=== PATIENT | female | born 1980 | race African-American/Black ===

== ENCOUNTER 2017-12-10 18:04 | Emergency (ER) | payer SELFPAY ==
[2017-12-10 19:35] LABS: URINE HCG POC HCG NEGATIVE (Negative)
== END 2017-12-10 21:55 | disposition home or self-care (01) ==
LOC: ER 18:04
DX: M71.22 Synovial cyst of popliteal space [Baker], left knee (principal); J45.909 Unspecified asthma, uncomplicated; F17.200 Nicotine dependence, unspecified, uncomplicated; Z91.040 Latex allergy status
CPT/HCPCS: 29505; 73564; 81025; 93971; 99284-25

== ENCOUNTER 2018-09-24 08:52 | Emergency (ER) | payer MEDICAID ==
[~2018-09-24] VITALS: Ht 175.3 cm; Wt 101.6 kg
[~2018-09-24 08:52] MED LIST: IBUP-1060 PO
--- NOTE | 2018-09-24 09:27 | EKG ---
[facility] [address] [place] [address] Test Date: 2018-09-24 Test Time: 09:15:50 Pat Name: GAVIN BOLAÑOS Department: Room: Gender: F [employer]: : 1980 Requested By: KAYLAN BOLANOS Order Number: [id number] Reading MD: Measurements Intervals Silvis Rate: 60 P: 54 UT: 154 QRS: 49 QRSD: 92 T: 44 QT: 394 QTc: 398 Interpretive Statements SINUS RHYTHM NO SPECIFIC ECG ABNORMALITIES RI6.01 No previous ECG available for comparison
--- NOTE | 2018-09-24 09:29 | RAD ---
CHEST AP ONLY Clinical Indication: STERNAL PAIN X1 DAY, HX OF ASTHMA Comparison: None. Findings: The cardiomediastinal silhouette is normal. Lungs are clear. There is no pneumothorax. No pleural effusion is appreciated. No acute bone abnormality. IMPRESSION: No acute cardiopulmonary process. Electronically signed by: Tommie Rivera MD (09/24/2018 9:24 AM) [id number]
--- NOTE | 2018-09-24 09:47 | PHYS DOC ---
Past Medical History Past Medical History: No Pertinent History, Asthma Past Surgical History: Additional Information: / PPD. Alcohol Use: Rarely Drug Use: None Adult General Chief Complaint Chief Complaint: CHEST PAIN HPI HPI 38-year-old female presenting the emergency department today with chest pain for the past 48 hours. It is worse when she moves around and takes deep breaths in. It is sharp shooting aching pain that is nonradiating intermittent and without alleviating factors. She denies abdominal pain nausea vomiting diaphoresis. She denies a history of hyperlipidemia hypertension. She denies history of diabetes.The patient denies unilateral leg swelling hemoptysis family or personal history of blood clotting disorders. The pt denies recent immobilization or surgery. Medical history: Asthma and migraines Surgical history: 3 C-sections and tubal ligation Social history smokes, denies drinking or IV drug use. She denies being . Review of systems is negative for abdominal pain nausea vomiting diaphoresis headache neck stiffness back pain and vaginal bleeding. All other review of systems is negative unless otherwise noted in history of present illness. ED course: 38 yo female presenting to the emergency department today with chest pain. Blood pressure mildly elevated. Otherwise satting well on room air with normal temperature. EKG obtained and reviewed by myself shows sinus rhythm with a regular rate. ST segments congruent. Not suggestive of ACS. Rest x-ray and blood work obtained. Workup here is unremarkable including a negative troponin. The patient's pain is been present for greater than 6 hours thus one troponin is sufficient. heart score calculated to be 1. We will refer her to cardiology within the next 24-48 hours and her PCP within the next 24-48 hours. She also complains of a small cyst anterior to her ear. Does not appear to be an abscess. We'll refer her to her PCP for this. No associated cellulitis. The patient has been examined and was not found to have an emergency medical condition. The patient was then discharged home in stable condition to follow up with their primary care physician over the next 1-2 days. They were to return if their symptoms worsened or if they were concerned for any reason. They were also instructed to return to the emergency department if they were unable to get the recommended and appropriate follow-up. [id number] discharge instructions and return precautions were given. Patient's questions were answered to their satisfaction. Patient is comfortable with plan. HEART SCORE History Slightly suspicious 0 Moderately suspicious +1 Highly suspicious +2 EKG 1 point: No ST depression but LBBB, LVH, repolarization changes (ex: digoxin); 2 points: ST depression/elevation not due to LBBB, LVH, or digoxin Normal 0 Non-specific repolarization disturbance +[address] depression +2 Age <45 0 45-65 +1 65 +2 Risk factors Risk factors: HTN, hypercholesterolemia, DM, obesity (BMI >30 kg/m), smoking (current, or smoking cessation 3 mo), positive family history (parent or sibling with CVD before age 65); atherosclerotic disease: prior PA, PCI/CABG, CVA/TIA, or peripheral arterial disease No known risk factors 0 1-2 risk factors +1 3 risk factors or history of atherosclerotic disease +2 Initial troponin Use local assays and corresponding cutoffs normal limit 0 1-2 normal limit +1 >2 normal limit +2 Total 1 point Review of Systems Review of Systems SEE ABOVE. Allergies Allergies Allergies Coded Allergies Type Severity Reaction Last Updated Verified Latex, Natural Rubber Allergy Intermediate "i swell up" 12/10/17 Yes Physical Exam Physical Exam SEE ABOVE Constitutional: Well developed, well nourished, no acute distress, non-toxic appearance. [] HENT: Normocephalic, atraumatic, bilateral external ears normal, oropharynx moist, no oral exudates, nose normal. [] Eyes: PERRLA, EOMI, conjunctiva normal, no discharge. [] Neck: Normal range of motion, no tenderness, supple, no stridor. [] Cardiovascular:Heart rate regular rhythm, no murmur [] Lungs & Thorax: Bilateral breath sounds clear to auscultation [] Abdomen: Bowel sounds normal, soft, no tenderness, no masses, no pulsatile masses. [] Skin: Warm, dry, no erythema, no rash. [] Back: No tenderness, no CVA tenderness. [] Extremities: No tenderness, no cyanosis, no clubbing, ROM intact, no edema. no swelling of the legs. Neurologic: Alert and oriented X 3, normal motor function, normal sensory function, no focal deficits noted. [] Psychologic: Affect normal, judgement normal, mood normal. [] Current Patient Data Vital Signs Vital Signs Date Time Temp Pulse Resp B/P (MAP) Pulse Ox O2 Delivery O2 Flow Rate FiO2 09/24/18 09:00 98.0 83 18 166/102 (123) 100 Room Air 98.0 Lab Values Laboratory Tests Test 09/24/18 09:30 White Blood Count 4.0 x10^3/uL (4.0-11.0) Red Blood Count 4.60 x10^6/uL (3.50-5.40) Hemoglobin 12.6 g/dL (12.0-15.5) Hematocrit 38.5 % (36.0-47.0) Mean Corpuscular Volume 84 fL (79-100) Mean Corpuscular Hemoglobin 27 pg (25-35) Mean Corpuscular Hemoglobin Concent 33 g/dL (31-37) Red Cell Distribution Width 14.3 % (11.5-14.5) Platelet Count 256 x10^3/uL (140-400) Neutrophils (%) (Auto) 49 % (31-73) Lymphocytes (%) (Auto) 37 % (24-48) Monocytes (%) (Auto) 7 % (0-9) Eosinophils (%) (Auto) 5 % (0-3) H Basophils (%) (Auto) 1 % (0-3) Neutrophils # (Auto) 2.0 x10^3uL (1.8-7.7) Lymphocytes # (Auto) 1.5 x10^3/uL (1.0-4.8) Monocytes # (Auto) 0.3 x10^3/uL (0.0-1.1) Eosinophils # (Auto) 0.2 x10^3/uL (0.0-0.7) Basophils # (Auto) 0.0 x10^3/uL (0.0-0.2) D-Dimer (Celeste) 0.27 ug/mlFEU (0.00-0.50) Sodium Level 140 mmol/L (136-145) Potassium Level 4.1 mmol/L (3.5-5.1) Chloride Level 103 mmol/L (98-107) Carbon Dioxide Level 28 mmol/L (21-32) Anion Gap 9 (6-14) Blood Urea Nitrogen 14 mg/dL (7-20) Creatinine 0.9 mg/dL (0.6-1.0) Estimated GFR (Cockcroft-Gault) 85.7 Glucose Level 99 mg/dL (70-99) Calcium Level 9.3 mg/dL (8.5-10.1) Total Bilirubin 0.1 mg/dL (0.2-1.0) L Direct Bilirubin 0.1 mg/dL (0.0-0.2) Aspartate Amino Transferase (AST) 14 U/L (15-37) L Alanine Aminotransferase (ALT) 20 U/L (14-59) Alkaline Phosphatase 52 U/L (46-116) Troponin I Quantitative < 0.017 ng/mL (0.000-0.055) Total Protein 7.7 g/dL (6.4-8.2) Albumin 4.0 g/dL (3.4-5.0) Lipase 117 U/L (73-393) Serum Test, Qualitative Negative (NEG) Laboratory Tests 09/24/18 09:30 Laboratory Tests 09/24/18 09:30 EKG EKG [] Radiology/Procedures Radiology/Procedures [] Course & Med Decision Making Course & Med Decision Making Pertinent Labs and Imaging studies reviewed. (See chart for details) [] Dragon Disclaimer Dragon Disclaimer This electronic medical record was generated, in whole or in part, using a voice recognition dictation system. Departure Departure Impression: Primary Impression: Chest pain Disposition: 01 HOME, SELF-CARE Condition: STABLE Referrals: NO PCP (PCP) Patient Instructions: Chest Pain (Nonspecific) Additional Instructions: Thank you for allowing us to participate in your care today. Return to the emergency department you have any new or worsening symptoms, or if you are concerned for any reason. Return to emergency department if you have any new or concerning symptoms including but not limited to fever, chills, nausea, vomiting, intractable pain, any new rashes, chest pain, shortness of air , uncontrolled bleeding, difficulty breathing, and/or vision loss. Follow up with your primary care physician within 1-2 days. Follow up with cardiology in 1-2 days. Call your Primary Doctor tomorrow and inform them of your visit today. If you do not have a primary care provider we are happy to provide you with a list of our primary care providers contact information. This condition should be evaluated by your primary care physician and any recommended consulting services for continued management within 2 days after discharge. If at any time, you are having difficulty getting into your primary care doctor or a specialist, return to the emergency department. Scripts Aspirin (ASPIRIN) 81 Mg Tab.chew 1 TAB PO DAILY, #7 TAB 0 Refills Prov: KAYLAN BOLANOS MD 09/24/18 KAYLAN BOLANOS MD Sep 24, 2018 09:47
[2018-09-24 09:48] LABS: BASO % 1 % (0-3); EOS # 0.2 x10^3/uL (0.0-0.7); EOS % 5 % (0-3); HEMATOCRIT 38.5 % (36.0-47.0); HEMOGLOBIN 12.6 g/dL (12.0-15.5); LYMPH # 1.5 x10^3/uL (1.0-4.8); LYMPH % 37 % (24-48); MEAN CORPUSCULAR HEMOGLOBIN 27 pg (25-35); MEAN CORPUSCULAR HGB CONC 33 g/dL (31-37); MEAN CORPUSCULAR VOLUME 84 fL (79-100); MONO # 0.3 x10^3/uL (0.0-1.1); MONO % 7 % (0-9); NEUT % 49 % (31-73); PLATELET COUNT 256 x10^3/uL (140-400); RED CELL DISTRIBUTION WIDTH 14.3 % (11.5-14.5)
[2018-09-24 10:07] LABS: CALCIUM 9.3 mg/dL (8.5-10.1); CREATININE 0.9 mg/dL (0.6-1.0); GFR 85.7; POTASSIUM 4.1 mmol/L (3.5-5.1)
[2018-09-24 10:11] LABS: DIRECT BILIRUBIN 0.1 mg/dL (0.0-0.2); TOTAL BILIRUBIN 0.1 mg/dL (0.2-1.0); TOTAL PROTEIN 7.7 g/dL (6.4-8.2)
[2018-09-24 10:23] LABS: PREG TEST PT QUAL NEGATIVE (NEG)
[2018-09-24] MEDS ORDERED: ASPI-630 PO (10:44)
[2018-09-24 11:31] VITALS: BP 145/92
== END 2018-09-24 11:49 | disposition home or self-care (01) ==
LOC: ER 08:52
DX: R07.1 Chest pain on breathing (principal); J45.909 Unspecified asthma, uncomplicated; G43.909 Migraine, unspecified, not intractable, without status migrainosus; F17.200 Nicotine dependence, unspecified, uncomplicated; Z91.040 Latex allergy status
CPT/HCPCS: 36415; 71045; 80048; 80076; 83690; 84484; 84703; 85025; 85379; 93005; 99284

== ENCOUNTER 2019-05-31 17:58 | Emergency (ER) | payer MEDICAID ==
[~2019-05-31] VITALS: Ht 175.3 cm; Wt 106.1 kg
[~2019-05-31 17:58] MED LIST changes: +ASPI-630 PO
--- NOTE | 2019-05-31 18:23 | PHYS DOC ---
Past Medical History Past Medical History: No Pertinent History, Asthma Past Surgical History: Alcohol Use: Rarely Drug Use: None Adult General Chief Complaint Chief Complaint: FLANK PAIN HPI HPI 39-year-old female presents to emergency department with complaints of left flank pain. Patient states her depression 4 days ago. She describes an aching sensation. No dysuria, fever, nausea, vomiting. She states coughing and movement makes it worse. Patient has a history of asthma, hypertension, migraine headach es. She denies any abdominal discomfort or diarrhea. Pain does not move anywhere stays in one spot. Review of Systems Review of Systems Constitutional: Denies fever or chills [] Respiratory: Denies cough or shortness of breath [] Cardiovascular: No additional information not addressed in HPI [] GI: Denies abdominal pain, nausea, vomiting, bloody stools or diarrhea [] : Denies dysuria or hematuria [] Musculoskeletal: Left flank pain Neurologic: Denies headache, focal weakness or sensory changes [] Endocrine: Denies polyuria or polydipsia [] All other systems were reviewed and found to be within normal limits, except as documented in this note. Current Medications Current Medications Current Medications Medications (Trade) Dose Ordered Sig/Soraya Start Time Stop Time Status Last Admin Dose Admin Ketorolac Tromethamine (Toradol 30mg Vial) 30 mg 1X ONCE 05/31/19 20:00 05/31/19 20:01 DC 05/31/19 19:58 30 MG Ketorolac Tromethamine (Toradol Im) 60 mg 1X ONCE 05/31/19 18:30 05/31/19 19:29 DC Allergies Allergies Allergies Coded Allergies Type Severity Reaction Last Updated Verified Latex, Natural Rubber Allergy Intermediate "i swell up" 12/10/17 Yes Physical Exam Physical Exam Constitutional: Well developed, well nourished, no acute distress, non-toxic appearance. [] HENT: Normocephalic, atraumatic, bilateral external ears normal, oropharynx moist, no oral exudates, nose normal. [] Cardiovascular:Heart rate regular rhythm, no murmur [] Lungs & Thorax: Bilateral breath sounds clear to auscultation [] Abdomen: Bowel sounds normal, soft, no tenderness, no masses, no pulsatile masses. [] Skin: Warm, dry, no erythema, no rash. [] Back: Left flank, side pain, no CVA tenderness Extremities: No tenderness, no cyanosis, no edema. [] Neurologic: Alert and oriented X 3, no focal deficits noted. [] Psychologic: Affect normal, judgement normal, mood normal. [] Current Patient Data Vital Signs Vital Signs Date Time Temp Pulse Resp B/P (MAP) Pulse Ox O2 Delivery O2 Flow Rate FiO2 05/31/19 20:00 80 16 132/81 (98) 98 Room Air 05/31/19 18:10 98.2 98.2 Lab Values Laboratory Tests Test 05/31/19 17:15 05/31/19 18:13 05/31/19 18:35 Urine Collection Type Unknown Urine Color Yellow Urine Clarity Clear Urine pH 6.0 Urine Specific [place] 1.020 Urine Protein Negative mg/dL (NEG-TRACE) Urine Glucose (UA) Negative mg/dL (NEG) Urine Ketones (Stick) Negative mg/dL (NEG) Urine Blood Negative (NEG) Urine Nitrite Negative (NEG) Urine Bilirubin Negative (NEG) Urine Urobilinogen Dipstick 1.0 mg/dL (0.2 mg/dL) Urine Leukocyte Esterase Negative (NEG) Urine RBC 0 /HPF (0-2) Urine WBC Occ /HPF (0-4) Urine Squamous Epithelial Cells Many /LPF Urine Bacteria Many /HPF (0-FEW) Urine Mucus Marked /LPF POC Urine HCG, Qualitative Hcg negative (Negative) White Blood Count 6.1 x10^3/uL (4.0-11.0) Red Blood Count 4.30 x10^6/uL (3.50-5.40) Hemoglobin 11.3 g/dL (12.0-15.5) L Hematocrit 34.7 % (36.0-47.0) L Mean Corpuscular Volume 81 fL (79-100) Mean Corpuscular Hemoglobin 26 pg (25-35) Mean Corpuscular Hemoglobin Concent 33 g/dL (31-37) Red Cell Distribution Width 15.0 % (11.5-14.5) H Platelet Count 247 x10^3/uL (140-400) Neutrophils (%) (Auto) 53 % (31-73) Lymphocytes (%) (Auto) 34 % (24-48) Monocytes (%) (Auto) 7 % (0-9) Eosinophils (%) (Auto) 5 % (0-3) H Basophils (%) (Auto) 1 % (0-3) Neutrophils # (Auto) 3.2 x10^3/uL (1.8-7.7) Lymphocytes # (Auto) 2.0 x10^3/uL (1.0-4.8) Monocytes # (Auto) 0.4 x10^3/uL (0.0-1.1) Eosinophils # (Auto) 0.3 x10^3/uL (0.0-0.7) Basophils # (Auto) 0.1 x10^3/uL (0.0-0.2) Sodium Level 141 mmol/L (136-145) Potassium Level 3.7 mmol/L (3.5-5.1) Chloride Level 106 mmol/L (98-107) Carbon Dioxide Level 25 mmol/L (21-32) Anion Gap 10 (6-14) Blood Urea Nitrogen 14 mg/dL (7-20) Creatinine 0.9 mg/dL (0.6-1.0) Estimated GFR (Cockcroft-Gault) 85.2 BUN/Creatinine Ratio 16 (6-20) Glucose Level 125 mg/dL (70-99) H Calcium Level 8.5 mg/dL (8.5-10.1) Total Bilirubin 0.2 mg/dL (0.2-1.0) Aspartate Amino Transferase (AST) 11 U/L (15-37) L Alanine Aminotransferase (ALT) 8 U/L (14-59) L Alkaline Phosphatase 49 U/L (46-116) Total Protein 6.9 g/dL (6.4-8.2) Albumin 3.3 g/dL (3.4-5.0) L Albumin/Globulin Ratio 0.9 (1.0-1.7) L Laboratory Tests 05/31/19 18:35 Laboratory Tests 05/31/19 18:35 EKG EKG [] Radiology/Procedures Radiology/Procedures [facility] [address] [place] [address] IMAGING REPORT Signed PATIENT: GAVIN BOLAÑOS ACCOUNT: [id number] : 1980 LOCATION: ER AGE: 39 SEX: F EXAM STATUS: REG ER ORD. PHYSICIAN: COLLINS SAINZ MD REASON: left flank pain PROCEDURE: CT ABDOMEN PELVIS WO CONTRAST Exam: CT abdomen and pelvis without contrast INDICATION: Left flank pain TECHNIQUE: Sequential axial images through the abdomen and pelvis obtained without IV contrast. Sagittal and coronal reformatted images were reconstructed from the axial data and reviewed. Comparisons: None FINDINGS: Heart size is normal. No pericardial effusion. Visualized lung bases are clear. No pleural effusion. Evaluation of solid organs is limited secondary to noncontrast technique. Liver, spleen, pancreas and adrenals are unremarkable. Gallstones are noted within the gallbladder. Gallstone is noted at the gallbladder neck. Gallbladder is contracted without adjacent inflammatory changes. No perinephric inflammation or hydronephrosis. No renal or ureteral calculi. Bladder is distended and appears thin-walled. Uterus is moderately enlarged, likely fibroid appearance. Large and small bowel are unremarkable. No obstruction. No free intra-abdominal air or fluid. Appendix is normal. Abdominal aorta has a normal course and caliber. Abdominal vasculature is patent. No enlarged abdominal lymph nodes are identified. No suspicious osseous lesions or acute fractures. IMPRESSION: 1. No renal or ureteral calculi. No evidence for obstructive uropathy. 2. Cholelithiasis. Exposure: One or more of the following in the visualized dose reduction techniques were utilized for this examination: 1. Automated exposure control 2. Adjustment of the MA and/or KV according to patient size 3. Use of iterative of reconstructive technique Electronically signed by: To Muir MD (05/31/2019 8:45 PM) [facility] DICTATED and SIGNED BY: TO MUIR MD DATE: 05/31/192044 [] Course & Med Decision Making Course & Med Decision Making Pertinent Labs and Imaging studies reviewed. (See chart for details) []39-year-old female presents to emergency department with complaints of left flank pain. Patient states her depression 4 days ago. She describes an aching sensation. No dysuria, fever, nausea, vomiting. She states coughing and movement makes it worse. Patient has a history of asthma, hypertension, migraine headaches. She denies any abdominal discomfort or diarrhea. Pain does not move anywhere stays in one spot. Labs, imaging reviewed no evidence of acute stone appreciated. She does have gallstones present however pain is left-sided. It is Dr. Stone, no urinary tract infection. We'll plan for muscle relaxer upon discharge, anti-inflammatories. Return precautions provided, patient understanding. Dragon Disclaimer Dragon Disclaimer This electronic medical record was generated, in whole or in part, using a voice recognition dictation system. Departure Departure Impression: Primary Impression: Left flank pain Disposition: HOME, SELF-CARE Condition: STABLE Referrals: NO PCP (PCP) Patient Instructions: Flank Pain, [id number] Additional Instructions: Recommend follow up with PCP 3 - 5 days Return to the ER with worsening symptoms, intractable pain, fever, altered mental status Tylenol/Motrin as needed for pain Urinalysis negative for UTI, CT without evidence of acute stone or process causing left flank pain Muscle relaxer prescription provided take as directed Scripts Cyclobenzaprine Hcl (CYCLOBENZAPRINE HCL) 10 Mg Tablet 1 TAB PO TID, #21 TAB Prov: COLLINS SAINZ MD 05/31/19 COLLINS SAINZ MD May 31, 2019 18:23
[2019-05-31] MEDS ORDERED: KETOROLAC 60 MG/2 ML VIAL. IM ONE (18:30)
[2019-05-31 18:41] LABS: BILIRUBIN,URINE NEGATIVE (NEG); CLARITY,URINE CLEAR; COLOR,URINE YELLOW; NITRITE,URINE NEGATIVE (NEG); PROTEIN,URINE NEGATIVE (NEG-TRACE)
[2019-05-31 18:51] LABS: BACTERIA,URINE MANY /HPF (0-FEW); RBC,URINE 0 /HPF (0-2); SQUAMOUS EPITHELIAL CELL,UR MANY /LPF; WBC,URINE OCC /HPF (0-4)
[2019-05-31 18:57] LABS: BASO # 0.1 x10^3/uL (0.0-0.2); BASO % 1 % (0-3); EOS # 0.3 x10^3/uL (0.0-0.7); EOS % 5 % (0-3); HEMATOCRIT 34.7 % (36.0-47.0); HEMOGLOBIN 11.3 g/dL (12.0-15.5); LYMPH % 34 % (24-48); MEAN CORPUSCULAR HEMOGLOBIN 26 pg (25-35); MEAN CORPUSCULAR HGB CONC 33 g/dL (31-37); MEAN CORPUSCULAR VOLUME 81 fL (79-100); MONO # 0.4 x10^3/uL (0.0-1.1); MONO % 7 % (0-9); NEUT # 3.2 x10^3/uL (1.8-7.7); NEUT % 53 % (31-73); PLATELET COUNT 247 x10^3/uL (140-400); WHITE BLOOD COUNT 6.1 x10^3/uL (4.0-11.0)
[2019-05-31 19:07] LABS: CALCIUM 8.5 mg/dL (8.5-10.1); CREATININE 0.9 mg/dL (0.6-1.0); GFR 85.2; POTASSIUM 3.7 mmol/L (3.5-5.1)
[2019-05-31 19:11] LABS: ALBUMIN 3.3 g/dL (3.4-5.0); ALBUMIN/GLOBULIN RATIO 0.9 (1.0-1.7); TOTAL BILIRUBIN 0.2 mg/dL (0.2-1.0); TOTAL PROTEIN 6.9 g/dL (6.4-8.2)
[2019-05-31] MEDS ORDERED: KETOROLAC 30 MG/ML VIAL. IV ONE (20:00)
--- NOTE | 2019-05-31 20:48 | RAD ---
Exam: CT abdomen and pelvis without contrast INDICATION: Left flank pain TECHNIQUE: Sequential axial images through the abdomen and pelvis obtained without IV contrast. Sagittal and coronal reformatted images were reconstructed from the axial data and reviewed. Comparisons: None FINDINGS: Heart size is normal. No pericardial effusion. Visualized lung bases are clear. No pleural effusion. Evaluation of solid organs is limited secondary to noncontrast technique. Liver, spleen, pancreas and adrenals are unremarkable. Gallstones are noted within the gallbladder. Gallstone is noted at the gallbladder neck. Gallbladder is contracted without adjacent inflammatory changes. No perinephric inflammation or hydronephrosis. No renal or ureteral calculi. Bladder is distended and appears thin-walled. Uterus is moderately enlarged, likely fibroid appearance. Large and small bowel are unremarkable. No obstruction. No free intra-abdominal air or fluid. Appendix is normal. Abdominal aorta has a normal course and caliber. Abdominal vasculature is patent. No enlarged abdominal lymph nodes are identified. No suspicious osseous lesions or acute fractures. IMPRESSION: 1. No renal or ureteral calculi. No evidence for obstructive uropathy. 2. Cholelithiasis. Exposure: One or more of the following in the visualized dose reduction techniques were utilized for this examination: 1. Automated exposure control 2. Adjustment of the MA and/or KV according to patient size 3. Use of iterative of reconstructive technique Electronically signed by: To Argueta MD (05/31/2019 8:45 PM) [facility]
[2019-05-31 21:00] VITALS: BP 144/90
[2019-05-31] MEDS ORDERED: CYCL10TA2 PO (21:02)
== END 2019-05-31 21:10 | disposition home or self-care (01) ==
LOC: ER 17:58
DX: R10.9 Unspecified abdominal pain (principal); K80.20 Calculus of gallbladder without cholecystitis without obstruction; J45.909 Unspecified asthma, uncomplicated; G43.909 Migraine, unspecified, not intractable, without status migrainosus; I10 Essential (primary) hypertension; Z91.040 Latex allergy status
CPT/HCPCS: 36415; 74176; 80053; 81001; 81025; 85025; 87086; 96374; 99285; J1885

== ENCOUNTER 2020-02-16 22:56 | Emergency (ER) | payer MEDICAID ==
[~2020-02-16] VITALS: Ht 175.3 cm; Wt 101.3 kg
[~2020-02-16 22:56] MED LIST changes: +CYCL10TA2 PO
--- NOTE | 2020-02-16 23:11 | PHYS DOC ---
Past Medical History Past Medical History: Asthma, Hypertension Past Surgical History: Smoking Status: Former Smoker Alcohol Use: Rarely Drug Use: None General Adult EDM: Chief Complaint: PLEURISY HPI: HPI: Patient is a 39 year old female who presents for evaluation of chest pressure and shortness of air. Onset since about 5 PM today. Her symptoms do wax and wane. Symptoms much worse with movement. Patient has a history of asthma and high blood pressure. Vital signs were stable and her oxygen levels were normal. Patient used multiple breathing treatments prior to arrival with improvement initially but then symptoms got worse. Patient anxious on arrival. Oxygen sats 100% on arrival Review of Systems: Review of Systems: Constitutional: Denies fever or chills. [] Eyes: Denies change in visual acuity. [] HENT: Denies nasal congestion or sore throat. [] Respiratory: chronic cough has shortness of breath. [] Cardiovascular: has chest pain or edema. [] GI: Denies abdominal pain, nausea, vomiting, bloody stools or diarrhea. [] : Denies dysuria. [] Musculoskeletal: Denies back pain or joint pain. [] Integument: Denies rash. [] Neurologic: Denies headache, focal weakness or sensory changes. [] Endocrine: Denies polyuria or polydipsia. [] Lymphatic: Denies swollen glands. [] Psychiatric: Denies depression has anxiety. [] Heart Score: HEART Score for Chest Pain: HEART Score for Chest Pain Response (Comments) Value History Slighlty/Non-Suspicious 0 ECG Normal 0 Age < 45 0 Risk Factors No Risk Factors 0 Troponin < Normal Limit 0 Total 0 Risk Factors: Risk Factors: DM, Current or recent (<one month) smoker, HTN, HLP, family hist ory of CAD, obesity. Risk Scores: Score 0 - 3: 2.5% MACE over next 6 weeks - Discharge Home Score 4 - 6: 20.3% MACE over next 6 weeks - Admit for Clinical Observation Score 7 - 10: 72.7% MACE over next 6 weeks - Early Invasive Strategies Allergies: Allergies: Allergies Coded Allergies Type Severity Reaction Last Updated Verified Latex, Natural Rubber Allergy Intermediate "i swell up" 12/10/17 Yes Physical Exam: PE: Constitutional: Well developed, well nourished, mild distress, non-toxic mel earance. [] HENT: Normocephalic, atraumatic, bilateral external ears normal, oropharynx moist, no oral exudates, nose normal. [] Eyes: PERRL, EOMI, conjunctiva normal, no discharge. [] Neck: Normal range of motion, no tenderness, supple, no stridor. [] Cardiovascular:Heart rate regular rhythm, no murmur [] Lungs & Thorax: Bilateral breath sounds clear to auscultation, slightly diminished breath sounds but symmetric bilaterally, minimal wheezing, good air movement, no conversational dyspnea [] Abdomen: Bowel sounds normal, soft, no tenderness, no masses, no pulsatile masses. [] Skin: Warm, dry, no erythema, no rash. [] Back: No tenderness, no CVA tenderness. [] Extremities: No tenderness, no cyanosis, no clubbing, ROM intact, no edema. [] Neurologic: Alert and oriented, normal motor function, normal sensory function, no focal deficits noted. [] Psychologic: Affect normal, judgement normal, mood anxious. [] Current Patient Data: Labs: Laboratory Tests Test 02/16/20 23:10 White Blood Count 6.2 x10^3/uL Red Blood Count 4.58 x10^6/uL Hemoglobin 12.1 g/dL Hematocrit 36.3 % Mean Corpuscular Volume 79 fL Mean Corpuscular Hemoglobin 26 pg Mean Corpuscular Hemoglobin Concent 33 g/dL Red Cell Distribution Width 16.0 % Platelet Count 321 x10^3/uL Neutrophils (%) (Auto) 50 % Lymphocytes (%) (Auto) 37 % Monocytes (%) (Auto) 7 % Eosinophils (%) (Auto) 5 % Basophils (%) (Auto) 1 % Neutrophils # (Auto) 3.1 x10^3/uL Lymphocytes # (Auto) 2.3 x10^3/uL Monocytes # (Auto) 0.4 x10^3/uL Eosinophils # (Auto) 0.3 x10^3/uL Basophils # (Auto) 0.1 x10^3/uL Sodium Level 139 mmol/L Potassium Level 3.7 mmol/L Chloride Level 102 mmol/L Carbon Dioxide Level 24 mmol/L Anion Gap 13 Blood Urea Nitrogen 13 mg/dL Creatinine 1.2 mg/dL Estimated GFR (Cockcroft-Gault) 61.2 BUN/Creatinine Ratio 11 Glucose Level 93 mg/dL Calcium Level 8.7 mg/dL Total Bilirubin 0.1 mg/dL Aspartate Amino Transf (AST/SGOT) 14 U/L Alanine Aminotransferase (ALT/SGPT) 16 U/L Alkaline Phosphatase 57 U/L Troponin I Quantitative < 0.017 ng/mL Total Protein 7.7 g/dL Albumin 3.7 g/dL Albumin/Globulin Ratio 0.9 Current Medications Medications (Trade) Dose Ordered Sig/Soraya Route PRN Reason Start Time Stop Time Status Last Admin Dose Admin Methylprednisolone Sodium Succinate (SOLU-Medrol 125MG VIAL) 125 mg 1X ONCE IV 02/16/20 23:45 02/16/20 23:46 DC 02/16/20 23:36 EKG: EKG: EKG read at 2308 showed normal sinus rhythm, rate 82, essentially normal EKG, not STEMI [] Radiology/Procedures: Radiology/Procedures: [facility] [address] [place] [address] IMAGING REPORT Signed PATIENT: GAVIN BOLAÑOS ACCOUNT: [id number] : 1980 LOCATION: ER AGE: 39 SEX: F EXAM STATUS: REG ER ORD. PHYSICIAN: BERNARDINO CARRION DO REASON: chest pain PROCEDURE: CHEST AP ONLY AP portable chest radiograph 02/16/2020 Clinical History: Chest pain. An AP erect portable digital radiograph of the chest was obtained. Comparison study is dated 09/24/2018. The cardiac and mediastinal silhouettes are within normal limits in size and configuration. No pulmonary infiltrate is seen. No pleural effusion or pneumothorax is noted. The osseous structures are grossly intact. Impression: No acute abnormality is seen. Electronically signed by: Mayank Georges MD (02/17/2020 12:02 AM) [id number] DICTATED and SIGNED BY: MAYANK GEORGES MD DATE: 02/17/20 0002 [] Course & Med Decision Making: Course & Med Decision Making Pertinent Labs and Imaging studies reviewed. (See chart for details) [] Dragon Disclaimer: Dragon Disclaimer: This electronic medical record was generated, in whole or in part, using a voice recognition dictation system. 0110 stable, reassessed at this time. Patient breathing much easier at this time. Patient likely has chest wall pain she has had this before with her asthma. Chest x-ray normal, cardiac labs normal. Oxygen sats normal. She does not need refill on her breathing medication. Prescription for Medrol Dosepak given Departure Departure Impression: Primary Impression: Costochondral chest pain Additional Impression: Asthma attack Disposition: HOME, SELF-CARE Condition: STABLE Referrals: NO PCP (PCP) VERO ALEXIS MD Patient Instructions: Asthma, Acute Bronchospasm, Pleurisy Additional Instructions: Rest, no heavy lifting, take medication as directed, use your breathing medication as directed. Return if worsen Scripts Methylprednisolone (MEDROL) 4 Mg Tab.ds.pk 1 PKG PO UD for inflammation, #1 PKG Prov: BERNARDINO CARRION DO 02/17/20 Justicifation of Admission Dx: Justifications for Admission: Justification of Admission Dx: N/A BERNARDINO CARRION DO Feb 16, 2020 23:11
[2020-02-16 23:22] LABS: BASO # 0.1 x10^3/uL (0.0-0.2); BASO % 1 % (0-3); EOS # 0.3 x10^3/uL (0.0-0.7); EOS % 5 % (0-3); HEMATOCRIT 36.3 % (36.0-47.0); HEMOGLOBIN 12.1 g/dL (12.0-15.5); LYMPH # 2.3 x10^3/uL (1.0-4.8); LYMPH % 37 % (24-48); MEAN CORPUSCULAR HEMOGLOBIN 26 pg (25-35); MEAN CORPUSCULAR HGB CONC 33 g/dL (31-37); MEAN CORPUSCULAR VOLUME 79 fL (79-100); MONO # 0.4 x10^3/uL (0.0-1.1); MONO % 7 % (0-9); NEUT # 3.1 x10^3/uL (1.8-7.7); NEUT % 50 % (31-73); PLATELET COUNT 321 x10^3/uL (140-400); RED BLOOD COUNT 4.58 x10^6/uL (3.50-5.40); WHITE BLOOD COUNT 6.2 x10^3/uL (4.0-11.0)
[2020-02-16 23:39] LABS: CALCIUM 8.7 mg/dL (8.5-10.1); CREATININE 1.2 mg/dL (0.6-1.0); GFR 61.2; POTASSIUM 3.7 mmol/L (3.5-5.1)
[2020-02-16 23:44] LABS: ALBUMIN 3.7 g/dL (3.4-5.0); ALBUMIN/GLOBULIN RATIO 0.9 (1.0-1.7); TOTAL BILIRUBIN 0.1 mg/dL (0.2-1.0); TOTAL PROTEIN 7.7 g/dL (6.4-8.2)
[2020-02-16] MEDS ORDERED: methylPREDNISolone SOD SUCC PF 125 MG/2 ML VIAL. IV ONE (23:45)
--- NOTE | 2020-02-17 00:05 | RAD ---
AP portable chest radiograph 02/16/2020 Clinical History: Chest pain. An AP erect portable digital radiograph of the chest was obtained. Comparison study is dated 09/24/2018. The cardiac and mediastinal silhouettes are within normal limits in size and configuration. No pulmonary infiltrate is seen. No pleural effusion or pneumothorax is noted. The osseous structures are grossly intact. Impression: No acute abnormality is seen. Electronically signed by: Mayank Georges MD (02/17/2020 12:02 AM) [id number]
[2020-02-17 01:07] VITALS: BP 158/77
[2020-02-17] MEDS ORDERED: METH4TAB2 PO (01:16)
--- NOTE | 2020-02-17 07:52 | EKG ---
[facility] [address] [place] [address] Test Date: 2020-02-16 Test Time: 23:06:28 Pat Name: GAVIN BOLAÑOS Department: Room: Gender: F [employer]: : 1980 Requested By: BERNARDINO CARRION Order Number: [id number] Reading MD: Measurements Intervals [place] Rate: 82 P: 71 NM: 154 QRS: 47 QRSD: 94 T: 36 QT: 362 QTc: 426 Interpretive Statements SINUS RHYTHM LEFT ATRIAL ABNORMALITY ABNORMAL ECG RI6.02 No previous ECG available for comparison
== END 2020-02-17 01:27 | disposition home or self-care (01) ==
LOC: ER 22:56
DX: R07.89 Other chest pain (principal); J45.909 Unspecified asthma, uncomplicated; I10 Essential (primary) hypertension; Z98.890 Other specified postprocedural states; Z87.891 Personal history of nicotine dependence; Z91.040 Latex allergy status
CPT/HCPCS: 36415; 71045; 80053; 84484; 85025; 93005; 96374; 99285; J2930

== ENCOUNTER 2021-11-07 13:22 | Emergency (ER) | payer MEDICAID ==
[~2021-11-07] VITALS: Ht 175.3 cm; Wt 103.0 kg
[~2021-11-07 13:22] MED LIST changes: +CYCL10TA19 PO; -CYCL10TA2 PO; +METH4TAB2 PO
[2021-11-07 13:23] VITALS: BP 128/87
--- NOTE | 2021-11-07 14:12 | RAD ---
EXAM: 3 views of the right ankle DATE: 11/07/2021 1:51 PM INDICATION: Reason: FELL, RIGHT ANKLE INJURY / Spl. Instructions: / History: COMPARISON: No Prior FINDINGS: No acute fracture or dislocation. Ankle mortise is congruent. Talar dome is intact. Joint spaces are preserved without significant degenerative/proliferative change. Marked soft tissue swelling overlyin g the lateral malleolus. IMPRESSION: No acute fracture or dislocation. Marked soft tissue swelling overlying the lateral malleolus. If there is persistent clinical concern for fracture, follow-up radiographs in 10-14 days is recommended. Electronically signed by: Moris Tidwell MD (11/07/2021 2:09 PM) SKY
--- NOTE | 2021-11-07 14:49 | PHYS DOC ---
Past Medical History Past Medical History: Asthma, Hypertension Past Surgical History: No Surgical History, Smoking Status: Current Every Day Smoker Alcohol Use: Rarely Drug Use: None General Adult EDM: Chief Complaint: MULTIPLE TRAUMA/FALL HPI: HPI: Patient is a 41 year old female who present to ER for evaluation of right ankle pain after she fell in the bathroom. Patient says she was getting out of her shower, she slipped on the floor, she twisted her right ankle. Patient says she been having pain when she walks. Patient denies any knee pain, no leg pain, no other injury. Review of Systems: Review of Systems: Constitutional: Denies fever or chills. [] Eyes: Denies change in visual acuity. [] HENT: Denies nasal congestion or sore throat. [] Respiratory: Denies cough or shortness of breath. [] Cardiovascular: Denies chest pain or edema. [] GI: Denies abdominal pain, nausea, vomiting, bloody stools or diarrhea. [] : Denies dysuria. [] Musculoskeletal: Denies back pain, positive for right ankle pain Integument: Denies rash. [] Neurologic: Denies headache, focal weakness or sensory changes. [] Endocrine: Denies polyuria or polydipsia. [] Lymphatic: Denies swollen glands. [] Psychiatric: Denies depression or anxiety. [] Heart Score: C/O Chest Pain: N/A Risk Factors: Risk Factors: DM, Current or recent (<one month) smoker, HTN, HLP, family history of CAD, obesity. Risk Scores: Score 0 - 3: 2.5% MACE over next 6 weeks - Discharge Home Score 4 - 6: 20.3% MACE over next 6 weeks - Admit for Clinical Observation Score 7 - 10: 72.7% MACE over next 6 weeks - Early Invasive Strategies Allergies: Allergies: Allergies Coded Allergies Type Severity Reaction Last Updated Verified Latex, Natural Rubber Allergy Intermediate "i swell up" 11/07/21 Yes Physical Exam: PE: Constitutional: Well developed, well nourished, no acute distress, non-toxic appearance. [] HENT: Normocephalic, atraumatic, bilateral external ears normal, oropharynx moist, no oral exudates, nose normal. [] Eyes: PERRLA, EOMI, conjunctiva normal, no discharge. [] Neck: Normal range of motion, no tenderness, supple, no stridor. [] Cardiovascular:Heart rate regular rhythm, no murmur [] Lungs & Thorax: Bilateral breath sounds clear to auscultation [] Abdomen: Bowel sounds normal, soft, no tenderness, no masses, no pulsatile masses. [] Skin: Warm, dry, no erythema, no rash. [] Back: No tenderness, no CVA tenderness. [] Extremities: Right ankle is tender to palpation, minimal swelling at the lateral malleolus area. There is no open wound. Neurologic: Alert and oriented X 3, normal motor function, normal sensory function, no focal deficits noted. [] Psychologic: Affect normal, judgement normal, mood normal. [] Current Patient Data: Vital Signs: Vital Signs Date Time Temp Pulse Resp B/P (MAP) Pulse Ox O2 Delivery O2 Flow Rate FiO2 11/07/21 13:23 98.7 87 18 128/87 (101) 98 Room Air 98.7 EKG: EKG: [] Radiology/Procedures: Radiology/Procedures: [][facility] [address] [place] [address] IMAGING REPORT Signed PATIENT: GAVIN BOLAÑOS ACCOUNT: [id number] : 1980 LOCATION: ER AGE: 41 SEX: F EXAM STATUS: REG ER ORD. PHYSICIAN: DAVINA DAVE DO REASON: FELL, RIGHT ANKLE INJURY PROCEDURE: ANKLE RIGHT 3V EXAM: 3 views of the right ankle DATE: 11/07/2021 1:51 PM INDICATION: Reason: FELL, RIGHT ANKLE INJURY / Spl. Instructions: / History: COMPARISON: No Prior FINDINGS: No acute fracture or dislocation. Ankle mortise is congruent. Talar dome is intact. Joint spaces are preserved without significant degenerative/proliferative change. Marked soft tissue swelling overlying the lateral malleolus. IMPRESSION: No acute fracture or dislocation. Marked soft tissue swelling overlying the lateral malleolus. If there is persistent clinical concern for fracture, follow-up radiographs in 10-14 days is recommended. Electronically signed by: Moris Salinas MD (11/07/2021 2:09 PM) [facility] DICTATED and SIGNED BY: MORIS SALINAS MD DATE: 11/07/21 [id number] 0 Course & Med Decision Making: Course & Med Decision Making Pertinent Labs and Imaging studies reviewed. (See chart for details) Patient is a 41-year-old female who present to ER for evaluation of right ankle pain after she fell in the bathroom today. X-ray her right ankle did not show any acute fracture or dislocation. Patient right ankle was placed in an Kurt wrap, patient was discharged home, patient was instructed to use crutches as needed. Patient was instructed to take Tylenol or Motrin as needed for pain control. Dragon Disclaimer: Dragon Disclaimer: This electronic medical record was generated, in whole or in part, using a voice recognition dictation system. Departure Departure Impression: Primary Impression: Right ankle sprain Disposition: 01 HOME / SELF CARE / HOMELESS Condition: IMPROVED Referrals: NO PCP (PCP) ANA PANG Jr. DO Please call this orthopedic physician for follow up as needed Patient Instructions: Ankle Sprain, Acute, with Phase I Rehab-SportsMed Additional Instructions: Take Tylenol /Motrin as needed for pain control. DAVINA DAVE DO Nov 07, 2021 14:49
== END 2021-11-07 15:11 | disposition home or self-care (01) ==
LOC: ER 13:22
DX: S93.401A Sprain of unspecified ligament of right ankle, initial encounter (principal); J45.909 Unspecified asthma, uncomplicated; I10 Essential (primary) hypertension; F17.200 Nicotine dependence, unspecified, uncomplicated; Z91.040 Latex allergy status; W18.2XXA Fall in (into) shower or empty bathtub, initial encounter; Y93.89 Activity, other specified; Y92.89 Other specified places as the place of occurrence of the external cause; Y99.8 Other external cause status
CPT/HCPCS: 73610; 99283

== ENCOUNTER 2021-12-12 18:33 | Emergency (ER) | payer MEDICAID ==
[~2021-12-12] VITALS: Ht 175.3 cm; Wt 101.9 kg
[2021-12-12 18:50] VITALS: BP 124/71
--- NOTE | 2021-12-12 19:49 | PHYS DOC ---
Past Medical History Past Medical History: Asthma, Hypertension Past Surgical History: Additional Past Surgical Histo: cyst removal from face Smoking Status: Current Every Day Smoker Alcohol Use: Rarely Drug Use: None General Adult EDM: Chief Complaint: UPPER EXTREMITY PAIN HPI: HPI: Patient is a 41 year old female who presents with states she was sitting at home with her arm bent upward and leaning on her head on her hand. She stated that she started getting a very bad throbbing pain in her left AC it is started swelling and is tender. She denies any drug use or needle sticks or IV recently. She rates her pain 6 out of 10. Patient states that she has a history of hypertension and asthma. She states she takes an 81 mg aspirin daily "just because." Patient denies recent injury to the extremity, swelling of the extremity, numbness tingling, focal weakness, recent surgery, recent needlesticks, history of DVT or PE, chest pain, shortness of breath, headache, dizziness, skin temperature change, skin color change. Review of Systems: Review of Systems: Constitutional: Denies fever or chills. [] Eyes: Denies change in visual acuity. [] HENT: Denies nasal congestion or sore throat. [] Respiratory: Denies cough or shortness of breath. [] Cardiovascular: Denies chest pain or edema. [] GI: Denies abdominal pain, nausea, vomiting, bloody stools or diarrhea. [] : Denies dysuria. [] Musculoskeletal: Denies back pain or joint pain. + Left AC pain [] Integument: Denies rash. + Left AC vein and swelling [] Neurologic: Denies headache, focal weakness or sensory changes. [] Endocrine: Denies polyuria or polydipsia. [] Lymphatic: Denies swollen glands. [] Psychiatric: Denies depression or anxiety. [] Heart Score: C/O Chest Pain: No Allergies: Allergies: Allergies Coded Allergies Type Severity Reaction Last Updated Verified Latex, Natural Rubber Allergy Intermediate "i swell up" 11/07/21 Yes Physical Exam: PE: Constitutional: Well developed, well nourished, no acute distress, non-toxic appearance. [] HENT: Normocephalic, atraumatic, bilateral external ears normal, oropharynx moist, no oral exudates, nose normal. [] Eyes: PERRLA, EOMI, conjunctiva normal, no discharge. [] Neck: Normal range of motion, no tenderness, supple, no stridor. [] Cardiovascular:Heart rate regular rhythm, no murmur [] Lungs & Thorax: Bilateral breath sounds clear to auscultation [] Abdomen: Bowel sounds normal, soft, no tenderness, no masses, no pulsatile masses. [] Skin: Warm, dry, no erythema, no rash. Swelling over the left AC vein with tenderness. Back: No tenderness, no CVA tenderness. [] Extremities: Tenderness left over the right AC vein tenderness, no cyanosis, no clubbing, ROM intact, 1+ swelling left over the AC pain edema. [] Neurologic: Alert and oriented X 3, normal motor function, normal sensory function, no focal deficits noted. [] Psychologic: Affect normal, judgement normal, mood normal. [] Current Patient Data: Vital Signs: Vital Signs Date Time Temp Pulse Resp B/P (MAP) Pulse Ox O2 Delivery O2 Flow Rate FiO2 12/12/21 18:50 98.3 84 18 124/71 (88) 97 Room Air 98.3 EKG: EKG: [] Radiology/Procedures: Radiology/Procedures: [] Impression: [facility] [address] [place], [place] [id number] IMAGING REPORT Signed PATIENT: GAVIN BOLAÑOS ACCOUNT: [id number] : 1980 LOCATION: ER AGE: 41 SEX: F EXAM STATUS: REG ER ORD. PHYSICIAN: JOSEP PERLA APRN REASON: AC swelling, tenderness over vein PROCEDURE: VENOUS UPPER EXTREMITY LEFT Left upper extremity venous Doppler ultrasound History: Reason: AC swelling, tenderness over vein / Comparison: None. Procedure: Color flow Doppler, Doppler spectral analysis, and 2D images are obtained with and without compression in the jugular vein, subclavian vein, axillary vein, brachial vein, radial vein, ulnar vein, and basilic and cephalic veins. Findings: There is normal color flow, augmentation, and compressibility of all visualized vein segments. No evidence of deep venous thrombus is present. IMPRESSION: No evidence of left upper extremity deep venous thrombosis. Electronically signed by: Tommie Langley MD (12/12/2021 8:29 PM) [id number] DICTATED and SIGNED BY: TOMMIE LANGLEY MD DATE: 12/12/212026 Course & Med Decision Making: Course & Med Decision Making Pertinent Labs and Imaging studies reviewed. (See chart for details) See HPI. Alert and oriented x4. Ambulatory steady gait. Skin pink warm and dry. Radial pulse strong present. Cap refill less than 2 seconds. Skin pink warm and dry. No redness over the left AC but there is tenderness and some swelling. There is no bruising. I do not see a needle emmanuel. No deformity or swelling. No obvious injury. Ultrasound shows no acute findings. Patient be sent home to follow-up with her primary care provider. [] Dragon Disclaimer: Dragon Disclaimer: This electronic medical record was generated, in whole or in part, using a voice recognition dictation system. Departure Departure Impression: Primary Impression: Arm pain, left Disposition: 01 HOME / SELF CARE / HOMELESS Condition: STABLE Referrals: NO PCP (PCP) Patient Instructions: Medical Screening Exam Additional Instructions: Follow-up with your primary care provider in the next couple of days. Use a warm compress. Continue taking your baby aspirin that you have been. Try taking Tylenol to also help with pain. If your begins to swell, change skin colors, skin temperature changes. JOSEP PERLA [employer] Dec 12, 2021 19:49
--- NOTE | 2021-12-12 20:32 | RAD ---
Left upper extremity venous Doppler ultrasound History: Reason: AC swelling, tenderness over vein / Comparison: None. Procedure: Color flow Doppler, Doppler spectral analysis, and 2D images are obtained with and without compression in the jugular vein, subclavian vein, axillary vein, brachial vein, radial vein, ulnar v ein, and basilic and cephalic veins. Findings: There is normal color flow, augmentation, and compressibility of all visualized vein segments. No megha dence of deep venous thrombus is present. IMPRESSION: No evidence of left upper extremity deep venous thrombosis. Electronically signed by: Tommie Rivera MD (12/12/2021 8:29 PM) [facility]
== END 2021-12-12 20:47 | disposition home or self-care (01) ==
LOC: ER 18:33
DX: M79.602 Pain in left arm (principal); R22.32 Localized swelling, mass and lump, left upper limb; J45.909 Unspecified asthma, uncomplicated; I10 Essential (primary) hypertension; F17.200 Nicotine dependence, unspecified, uncomplicated; Z91.040 Latex allergy status
CPT/HCPCS: 93971; 99284

== ENCOUNTER 2022-01-10 23:13 | Emergency (ER) | payer MEDICAID ==
[~2022-01-10] VITALS: Ht 175.3 cm; Wt 101.8 kg
--- NOTE | 2022-01-11 02:15 | ED.ADGEN ---
Past Medical History Past Medical History: Asthma, Hypertension Past Surgical History: Additional Past Surgical Histo: cyst removal from face Smoking Status: Current Every Day Smoker Alcohol Use: Rarely Drug Use: None General Adult EDM: Chief Complaint: BACK PAIN OR INJURY HPI: HPI: Patient is a 41 year old female coming in for bilateral low back pain that radiates to her low abdomen. Describes it as cramping. States the pain has been gradually getting worse over the past week. Been taking ibuprofen and Tylenol without relief. Denies any changes with urination. Denies any constipation or diarrhea. No fevers, weight loss, chills, or night sweats Review of Systems: Review of Systems: All other systems within normal limits except for as noted in the HPI Current Medications: Current Medications Medications (Trade) Dose Ordered Sig/Soraya Start Time Stop Time Status Last Admin Dose Admin Fentanyl Citrate (Fentanyl 2ml Vial) 75 mcg 1X ONCE 01/11/22 02:30 01/11/22 02:31 DC 01/11/22 02:42 75 MCG Ketorolac Tromethamine (Toradol 15mg Vial) 15 mg 1X ONCE 01/11/22 02:30 01/11/22 02:31 DC 01/11/22 02:42 15 MG Sodium Chloride 1,000 ml @ 1,000 mls/hr 1X ONCE 01/11/22 02:30 01/11/22 03:29 DC 01/11/22 02:43 1,000 MLS/HR Allergies: Allergies: Allergies Coded Allergies Type Severity Reaction Last Updated Verified Latex, Natural Rubber Allergy Intermediate "i swell up" 01/11/22 Yes Physical Exam: PE: Constitutional: Well developed, well nourished, no acute distress, non-toxic appearance. [] HENT: Normocephalic, atraumatic, bilateral external ears normal, nose normal. [] Eyes: PERRLA, conjunctiva normal, no discharge. [] Neck: No rigidity, supple, no stridor. [] Cardiovascular: Regular rate and rhythm, brisk cap refill [] Lungs & Thorax: Non labored symmetric respirations, no tachypnea or respiratory distress [] Abdomen: Soft, nondistended. Skin: Warm, dry, no erythema, no rash. [] Back: Unremarkable, no step-off or deformity, diffuse lower lumbar spine tenderness Extremities: No deformities, range of motion grossly intact, no lower extremity edema [] Neurologic: Alert and oriented X 3, no focal deficits noted. [] Psychologic: Affect normal, judgement normal, mood normal. [] Current Patient Data: Labs: Laboratory Tests Test 01/11/22 01:48 01/11/22 01:54 01/11/22 02:30 Urine Collection Type Unknown Urine Color (Auto) Light yellow Urine Turbidity Clear Urine pH (Auto) 6.0 (<5.0-8.0) Urine Specific [place] 1.020 (1.000-1.030) Urine Protein (Auto) Negative mg/dL (Negative) Urine Glucose (Auto)(UA) Negative mg/dL (Negative) Urine Ketones (Auto) Negative mg/dL (Negative) Urine Blood (Auto) Negative (Negative) Urine Nitrite Negative (Negative) Urine Bilirubin (Auto) Negative (Negative) Urine Urobilinogen (Auto) Normal mg/dL (Normal) Urine Leukocyte Esterase (Auto) Negative (Negative) Urine RBC 0 /HPF (0-2) Urine WBC 0 /HPF (0-4) Urine Squamous Epithelial Cells Few /LPF Urine Bacteria 0 /HPF (0-FEW) Urine Mucus Slight /LPF POC Urine HCG, Qualitative Hcg negative (Negative) White Blood Count 4.1 x10^3/uL (4.0-11.0) Red Blood Count 4.04 x10^6/uL (3.50-5.40) Hemoglobin 9.9 g/dL (12.0-15.5) L Hematocrit 30.8 % (36.0-47.0) L Mean Corpuscular Volume 76 fL (79-100) L Mean Corpuscular Hemoglobin 25 pg (25-35) Mean Corpuscular Hemoglobin Concent 32 g/dL (31-37) Red Cell Distribution Width 16.5 % (11.5-14.5) H Platelet Count 268 x10^3/uL (140-400) Neutrophils (%) (Auto) 49 % (31-73) Lymphocytes (%) (Auto) 31 % (24-48) Monocytes (%) (Auto) 17 % (0-9) H Eosinophils (%) (Auto) 3 % (0-3) Basophils (%) (Auto) 1 % (0-3) Neutrophils # (Auto) 2.0 x10^3/uL (1.8-7.7) Lymphocytes # (Auto) 1.3 x10^3/uL (1.0-4.8) Monocytes # (Auto) 0.7 x10^3/uL (0.0-1.1) Eosinophils # (Auto) 0.1 x10^3/uL (0.0-0.7) Basophils # (Auto) 0.1 x10^3/uL (0.0-0.2) Sodium Level 140 mmol/L (136-145) Potassium Level 3.8 mmol/L (3.5-5.1) Chloride Level 105 mmol/L (98-107) Carbon Dioxide Level 25 mmol/L (21-32) Anion Gap 10 (6-14) Blood Urea Nitrogen 12 mg/dL (7-20) Creatinine 0.9 mg/dL (0.6-1.0) Estimated GFR (Cockcroft-Gault) 84.3 BUN/Creatinine Ratio 13 (6-20) Glucose Level 94 mg/dL (70-99) Calcium Level 8.6 mg/dL (8.5-10.1) Total Bilirubin 0.1 mg/dL (0.2-1.0) L Aspartate Amino Transferase (AST) < 5 U/L (15-37) L Alanine Aminotransferase (ALT) 11 U/L (14-59) L Alkaline Phosphatase 61 U/L (46-116) Total Protein 7.0 g/dL (6.4-8.2) Albumin 3.2 g/dL (3.4-5.0) L Albumin/Globulin Ratio 0.8 (1.0-1.7) L Lipase 131 U/L (73-393) Laboratory Tests 01/11/22 02:30 Laboratory Tests 01/11/22 02:30 Vital Signs: Vital Signs Date Time Temp Pulse Resp B/P (MAP) Pulse Ox O2 Delivery O2 Flow Rate FiO2 01/11/22 02:42 16 99 Room Air 01/11/22 01:55 99.5 84 129/81 (97) 99.5 EKG: EKG: [] Heart Score: C/O Chest Pain: No Risk Factors: Risk Factors: DM, Current or recent (<one month) smoker, HTN, HLP, family history of CAD, obesity. Risk Scores: Score 0 - 3: 2.5% MACE over next 6 weeks - Discharge Home Score 4 - 6: 20.3% MACE over next 6 weeks - Admit for Clinical Observation Score 7 - 10: 72.7% MACE over next 6 weeks - Early Invasive Strategies Radiology/Procedures: Radiology/Procedures: [facility] [address] [place] [address] IMAGING REPORT Signed PATIENT: GAVIN BOLAÑOS ACCOUNT: [id number] : 1980 LOCATION: ER AGE: 41 SEX: F EXAM STATUS: REG ER ORD. PHYSICIAN: RAFFAELE MONTES MD REASON: low back and abd pain PROCEDURE: CT LUMBAR SPINE RECONSTRUCTION PQRS Compliance Statement: One or more of the following individualized dose reduction techniques were utilized for this examination: 1. Automated exposure control 2. Adjustment of the mA and/or kV according to patient size 3. Use of iterative reconstruction technique CT ABDOMEN+PELVIS WO, CT LUMBAR SPINE RECONSTRUCTION Clinical Indication: Reason: low back and abd pain / Spl. Instructions: / History: Comparison: CT abdomen and pelvis without contrast May 31, 2019. Technique: Helical CT imaging of the abdomen and pelvis is performed without IV or oral contrast. Using source images small [id number] multiplanar reformats of the lumbar spine constructed using bone algorithm. Findings: The lung bases are clear. Cardiac size normal. Cholelithiasis. There is probable normal variant Anali lobe. The liver is homogeneous. The spleen, pancreas, adrenal glands, abdominal aorta, and kidneys are normal. The stomach is distended with heterogeneous fluid. There is unchanged diastasis of the rectus abdominis muscles with protrusion of the abdominal contents. The appendix is normal. There is no small bowel obstruction. There is no colon wall thickening. There is no abdominal adenopathy or free fluid. The urinary bladder is nearly completely decompressed, limiting evaluation. The uterus and ovaries are unremarkable. There is trace pelvic free fluid. No acute pelvic fracture. There is no acute fracture of the lumbar spine. The vertebral body height and alignment are maintained. No disc space narrowing is seen. There is no high- grade central canal stenosis. There is a central disc protrusion of L5/S1 but no significant central canal stenosis. IMPRESSION: 1. No acute abdominal or pelvic abnormality. 2. Cholelithiasis. 3. Trace pelvic free fluid, likely physiologic. 4. No acute fracture or malalignment of the lumbar spine. Electronically signed by: Tommie Rivera MD (01/11/2022 3:03 AM) [facility] DICTATED and SIGNED BY: TOMMIE RIVERA MD DATE: 01/11/22 0256 [] Course & Med Decision Making: Course & Med Decision Making Pertinent Labs and Imaging studies reviewed. (See chart for details) [] Dragon Disclaimer: Lana Disclaimer: This electronic medical record was generated, in whole or in part, using a voice recognition dictation system. Departure Departure Impression: Primary Impression: Low back pain Disposition: HOME / SELF CARE / HOMELESS Condition: STABLE Referrals: NO PCP (PCP) Patient Instructions: Back Exercises Scripts Meloxicam (MELOXICAM) 15 Mg Tablet 1 TAB PO DAILY PRN for PAIN for 20 Days, #20 TAB 0 Refills Prov: RAFFAELE MONTES MD 01/11/22 Cyclobenzaprine Hcl (CYCLOBENZAPRINE HCL) 10 Mg Tablet 1 TAB PO TID for 5 Days, #15 TAB Prov: RAFFAELE MONTSE MD 01/11/22 RAFFAELE MONTES MD January 11, 2022 02:15
[2022-01-11 02:26] LABS: BACTERIA,URINE 0 /HPF (0-FEW); RBC,URINE 0 /HPF (0-2); WBC,URINE 0 /HPF (0-4)
[2022-01-11] MEDS ORDERED: IV NORMAL SALINE 1000ML BAG 1,000 ML IV ONE (02:30)
[2022-01-11] MEDS ORDERED: KETOROLAC 15 MG/ML VIAL. IVP ONE (02:30)
[2022-01-11] MEDS ORDERED: fentaNYL PF VIAL 100 MCG/2 ML VIAL IVP ONE (02:30)
[2022-01-11 02:58] LABS: BASO # 0.1 x10^3/uL (0.0-0.2); BASO % 1 % (0-3); EOS # 0.1 x10^3/uL (0.0-0.7); EOS % 3 % (0-3); HEMATOCRIT 30.8 % (36.0-47.0); HEMOGLOBIN 9.9 g/dL (12.0-15.5); LYMPH # 1.3 x10^3/uL (1.0-4.8); LYMPH % 31 % (24-48); MEAN CORPUSCULAR HEMOGLOBIN 25 pg (25-35); MEAN CORPUSCULAR HGB CONC 32 g/dL (31-37); MEAN CORPUSCULAR VOLUME 76 fL (79-100); MONO # 0.7 x10^3/uL (0.0-1.1); MONO % 17 % (0-9); NEUT % 49 % (31-73); PLATELET COUNT 268 x10^3/uL (140-400); RED BLOOD COUNT 4.04 x10^6/uL (3.50-5.40); RED CELL DISTRIBUTION WIDTH 16.5 % (11.5-14.5); WHITE BLOOD COUNT 4.1 x10^3/uL (4.0-11.0)
--- NOTE | 2022-01-11 03:06 | RAD ---
PQRS Compliance Statement: One or more of the following individualized dose reduction techniques were utilized for this examinat ion: 1. Automated exposure control 2. Adjustment of the mA and/or kV according to patient size 3. Use of iterative reconstruction technique CT ABDOMEN+PELVIS WO, CT LUMBAR SPINE RECONSTRUCTION Clinical Indication: Reason: low back and abd pain / Spl. Instructions: / History: Comparison: CT abdomen and pelvis without contrast May 31, 2019. Technique: Helical CT imaging of the abdomen and pelvis is performed without IV or oral contrast. Usi ng source images small [id number] multiplanar reformats of the lumbar spine constructed using bone algorithm. Findings: The lung bases are clear. Cardiac size normal. Cholelithiasis. There is probable normal variant Anali lobe. The liver is homogeneous. The spleen, p ancreas, adrenal glands, abdominal aorta, and kidneys are normal. The stomach is distended with heterogeneous fluid. There is unchanged diastasis of the rectus abdomin is muscles with protrusion of the abdominal contents. The appendix is normal. There is no small bowel obstruction. There is no colon wall thickening. There is no abdominal adenopathy or free fluid. The urinary bladder is nearly completely decompressed, limiting evaluation. The uterus and ovaries ar e unremarkable. There is trace pelvic free fluid. No acute pelvic fracture. There is no acute fracture of the lumbar spine. The vertebral body height and alignment are maintaine d. No disc space narrowing is seen. There is no high-grade central canal stenosis. There is a central disc protrusion of L5/S1 but no significant central canal stenosis. IMPRESSION: 1. No acute abdominal or pelvic abnormality. 2. Cholelithiasis. 3. Trace pelvic free fluid, likely physiologic. 4. No acute fracture or malalignment of the lumbar spine. Electronically signed by: Tommie Rivera MD (01/11/2022 3:03 AM) [facility]
[2022-01-11 03:11] LABS: ANION GAP 10 (6-14); BLOOD UREA NITROGEN 12 mg/dL (7-20); BUN/CREATININE RATIO 13 (6-20); CALCIUM 8.6 mg/dL (8.5-10.1); CARBON DIOXIDE 25 mmol/L (21-32); CHLORIDE 105 mmol/L (98-107); CREATININE 0.9 mg/dL (0.6-1.0); GFR 84.3; GLUCOSE 94 mg/dL (70-99); POTASSIUM 3.8 mmol/L (3.5-5.1); SODIUM 140 mmol/L (136-145)
[2022-01-11 03:19] LABS: ALBUMIN 3.2 g/dL (3.4-5.0); ALBUMIN/GLOBULIN RATIO 0.8 (1.0-1.7); ALK PHOS 61 U/L (46-116); ALT (SGPT) 11 U/L (14-59); LIPASE 131 U/L (73-393); TOTAL BILIRUBIN 0.1 mg/dL (0.2-1.0)
[2022-01-11 03:21] LABS: AST (SGOT) < 5 U/L (15-37)
[2022-01-11] MEDS ORDERED: MELO15TA23 PO (03:55)
[2022-01-11] MEDS ORDERED: CYCL10TA19 PO (03:55)
[2022-01-11 03:56] VITALS: BP 141/68
[2022-01-11] MEDS ORDERED: ORPHENADRINE CITRATE 60 MG/2 ML VIAL. IM ONE (04:00)
== END 2022-01-11 04:12 | disposition home or self-care (01) ==
LOC: ER 23:13
DX: M54.50 Low back pain, unspecified (principal); I10 Essential (primary) hypertension; J45.909 Unspecified asthma, uncomplicated; F17.200 Nicotine dependence, unspecified, uncomplicated; Z91.040 Latex allergy status
CPT/HCPCS: 36415; 74176; 80053; 81001; 81025; 83690; 85025; 96361; 96372; 96374; 96375; 99285; J1885; J2360; J3010; J7030